=== PATIENT | female | born 1960 | race Caucasian/White ===

== ENCOUNTER 2024-07-04 08:15 | Outpatient (CLI) | payer MEDICARE | END 2024-07-04 08:16 | disposition home or self-care (01) | LOC: CSHMRI 08:15 | PROVIDERS: ATTEND Orthopaedic Surgery | DX: M24.812 Other specific joint derangements of left shoulder, not elsewhere classified (principal); M77.8 Other enthesopathies, not elsewhere classified; M65.912 Unspecified synovitis and tenosynovitis, left shoulder; M75.112 Incomplete rotator cuff tear or rupture of left shoulder, not specified as traumatic; M19.012 Primary osteoarthritis, left shoulder ==

== ENCOUNTER 2025-04-16 07:48 | Outpatient (CLI) | payer MEDICARE | END 2025-04-16 07:49 | disposition home or self-care (01) | LOC: CSHMAMMO 07:48 | PROVIDERS: ATTEND Family Medicine | DX: Z12.31 Encounter for screening mammogram for malignant neoplasm of breast (principal) | CPT/HCPCS: 77063; 77067 ==